=== PATIENT | female | born 1985 | race Caucasian/White ===

== ENCOUNTER 2024-02-15 13:35 | Outpatient (OUT) | payer OTHER, SELFPAY ==
--- NOTE | 2024-02-15 | XR_ITS ---
The [address] [address] Patient Name: GREGORIO HINES MRN: [id number] date: 1985 Sex: F Assigned Patient Location: [facility] Current Patient Location: Accession/Order Number: [id number] Exam Date: 02/15/2024 14:10 Report Date: 02/16/2024 07:09 At the request of: ANA BARTON Procedure: XR mandible <4V PROCEDURE: XR mandible <4V COMPARISON: None. HISTORY: Pain lower jaw FINDINGS: BONES:No fracture, acute abnormality, or significant arthropathy. SOFT TISSUES:Negative. No visible soft tissue swelling. EFFUSION:None visible. OTHER: Negative. XR/XR mandible <4V IMPRESSION: No acute fracture Electronically authenticated by: DAMARIS JOAQUIN Date: 02/16/2024 07:09
== END 2024-02-15 13:36 | disposition home or self-care (01) ==
LOC: RAD 13:38
PROVIDERS: PCP Family Medicine; Visit Provider Family Medicine
DX: R68.84 Jaw pain (principal)
CPT/HCPCS: 70100